=== PATIENT | male | born 1995 | race Caucasian/White ===

== ENCOUNTER 2017-05-29 12:30 | Emergency (ER) | payer MEDICAID ==
[2017-05-29] MEDS ORDERED: Ondansetron 4 MG/2 ML SDV IVPUSH ONE (14:14)
[2017-05-29] MEDS ORDERED: HYDROmorphone 1 MG/ML Syringe IVPUSH ONE (14:14)
[2017-05-29] MEDS ORDERED: Sodium Chloride 0.9% 1,000 ML IV SCH ×2 (14:15→15:30)
--- NOTE | 2017-05-29 14:16 | EDM.PDOC ---
ED HPI GENERAL MEDICAL PROBLEM - General Chief Complaint: Flank Pain Stated Complaint: FLANK PAIN,NAUSEA Time Seen by Provider: 05/29/17 14:16 Source of Information: Reports: Patient, Family History Limitations: Reports: No Limitations - History of Present Illness INITIAL COMMENTS - FREE TEXT/NARRATIVE: pt arrived with pain in the upper abdoman and rt flank area. He has had his gb removed. Onset: Gradual, Other ( several days of pain. ) Duration: Day(s):, Getting Worse Location: Reports: Abdomen Associated Symptoms: Reports: Nausea/Vomiting abdominal Pain Score (Numeric/FACES): 7 - Related Data Allergies Allergy/AdvReac Type Severity Reaction Status Date / Time No Known Allergies Allergy Verified 05/29/17 13:11 Home Meds: Home Meds Omeprazole 20 mg PO DAILY 05/29/17 [History] Past Medical History Gastrointestinal History: Reports: GERD - Past Surgical History GI Surgical History: Reports: Cholecystectomy Social & Family History - Tobacco Use Smoking Status *Q: Current Every Day Smoker Years of Tobacco use: 5 Packs/Tins Daily: 0.5 - Recreational Drug Use Recreational Drug Use: Yes Drug Use in Last 12 Months: Yes Recreational Drug Type: Reports: Marijuana/Hashish Recreational Drug Use Frequency: Weekly ED ROS GENERAL - Review of Systems Review Of Systems: See Below Constitutional: Reports: No Symptoms HEENT: Reports: No Symptoms Respiratory: Reports: No Symptoms Cardiovascular: Reports: No Symptoms Endocrine: Reports: No Symptoms GI/Abdominal: Reports: Abdominal Pain, Other (upper abdoman and rt flank area. He has beenbring up alot of acid in his troat. ) : Reports: No Symptoms ED EXAM, GI/ABD - Physical Exam Exam: See Below Text/Narrative:: Pt arrived with pain in the upper abdoman and rt flank area. He has vomited today. He does decribe alot of acid coming up in his throat. He has had his Gb removed. He does have a history of ulcer disease. He has had some loose stools but not true diarrhea. He has not noted black and tarry stools. Exam Limited By: No Limitations General Appearance: Alert, Anxious, Mild Distress Ears: Normal TMs Nose: Normal Inspection Throat/Mouth: Normal Inspection Head: Atraumatic Neck: Normal Inspection Respiratory/Chest: No Respiratory Distress Cardiovascular: Regular Rate, Rhythm GI/Abdominal Exam: Tender, Other ( tenderness without guarding in the epigastric and rt upper quadrant. ) (Male) Exam: Deferred Rectal (Males) Exam: Deferred Back Exam: Normal Inspection Extremities: Normal Inspection Neurological: Alert, Oriented, Normal Cognition Psychiatric: Anxious Course - Vital Signs Last Recorded V/S: Last Vital Signs Temp 37.0 C 05/29/17 13:13 Pulse 65 05/29/17 15:45 Resp 18 05/29/17 15:45 BP 138/75 05/29/17 15:45 Pulse Ox 98 05/29/17 15:45 - Orders/Labs/Meds Orders: Active Orders 24 hr Category Date Time Status Abdomen Pelvis wo Cont [CT] Stat Exams 05/29/17 14:37 Taken Sodium Chloride 0.9% [Normal Saline] 1,000 ml Med 05/29/17 14:15 Active IV ASDIRECTED Sodium Chloride 0.9% [Normal Saline] 1,000 ml Med 05/29/17 15:30 Active IV ASDIRECTED Medication Orders Sodium Chloride (Normal Saline) 1,000 mls @ 999 mls/hr IV ASDIRECTED BENITO Last Admin: 05/29/17 14:25 Dose: 999 mls/hr Sodium Chloride (Normal Saline) 1,000 mls @ 999 mls/hr IV ASDIRECTED BENITO Last Admin: 05/29/17 15:47 Dose: 999 mls/hr Labs: Laboratory Tests 05/29/17 05/29/17 05/29/17 Range/Units 13:29 13:29 13:30 WBC 10.0 (4.5-11.0) K/uL RBC 5.69 (4.30-5.90) M/uL Hgb 17.6 H (12.0-15.0) g/dL Hct 49.8 (40.0-54.0) % MCV 88 (80-98) fL MCH 31 (27-31) pg MCHC 35 (32-36) % Plt Count 294 (150-400) K/uL Neut % (Auto) 54 (36-66) % Lymph % (Auto) 34 (24-44) % [place] % (Auto) 10 H (2-6) % Eos % (Auto) 1 L (2-4) % Baso % (Auto) 1 (0-1) % Sodium 140 (140-148) mmol/L Potassium 3.7 (3.6-5.2) mmol/L Chloride 103 (100-108) mmol/L Carbon Dioxide 28 (21-32) mmol/L Anion Gap 9.5 (5.0-14.0) mmol/L BUN 11 (7-18) mg/dL Creatinine 1.0 (0.8-1.3) mg/dL Est Cr Clr Drug Dosing 119.64 mL/min Estimated GFR (MDRD) > 60 (>60) Glucose 98 (74-106) mg/dL Calcium 9.6 (8.5-10.1) mg/dL Total Bilirubin 1.6 H (0.2-1.0) mg/dL AST 26 (15-37) U/L ALT 38 (12-78) U/L Alkaline Phosphatase 58 (46-116) U/L C-Reactive Protein (0.0-0.3) mg/dL Total Protein 8.8 H (6.4-8.2) g/dL Albumin 4.5 (3.4-5.0) g/dL Globulin 4.3 H (2.3-3.5) g/dL Albumin/Globulin Ratio 1.1 L (1.2-2.2) Amylase 65 (25-115) U/L Lipase 128 (73-393) U/L Urine Color Urine Appearance Urine pH (4.5-8.0) Ur Specific [place] (1.008-1.030) Urine Protein (NEGATIVE) mg/dL Urine Glucose (UA) (NEGATIVE) mg/dL Urine Ketones (NEGATIVE) mg/dL Urine Occult Blood (NEGATIVE) Urine Nitrite (NEGAITVE) Urine Bilirubin (NEGATIVE) Urine Urobilinogen (NORMAL) mg/dL Ur Leukocyte Esterase (NEGATIVE) Urine RBC (0-5) Urine WBC (0-5) Ur Epithelial Cells Amorphous Sediment Urine Bacteria Urine Mucus 05/29/17 05/29/17 Range/Units 13:30 14:10 WBC (4.5-11.0) K/uL RBC (4.30-5.90) M/uL Hgb (12.0-15.0) g/dL Hct (40.0-54.0) % MCV (80-98) fL MCH (27-31) pg MCHC (32-36) % Plt Count (150-400) K/uL Neut % (Auto) (36-66) % Lymph % (Auto) (24-44) % [place] % (Auto) (2-6) % Eos % (Auto) (2-4) % Baso % (Auto) (0-1) % Sodium (140-148) mmol/L Potassium (3.6-5.2) mmol/L Chloride (100-108) mmol/L Carbon Dioxide (21-32) mmol/L Anion Gap (5.0-14.0) mmol/L BUN (7-18) mg/dL Creatinine (0.8-1.3) mg/dL Est Cr Clr Drug Dosing mL/min Estimated GFR (MDRD) (>60) Glucose (74-106) mg/dL Calcium (8.5-10.1) mg/dL Total Bilirubin (0.2-1.0) mg/dL AST (15-37) U/L ALT (12-78) U/L Alkaline Phosphatase (46-116) U/L C-Reactive Protein 0.31 H (0.0-0.3) mg/dL Total Protein (6.4-8.2) g/dL Albumin (3.4-5.0) g/dL Globulin (2.3-3.5) g/dL Albumin/Globulin Ratio (1.2-2.2) Amylase (25-115) U/L Lipase (73-393) U/L Urine Color Yellow Urine Appearance Slightly cloudy Urine pH 8.0 (4.5-8.0) Ur Specific [place] 1.015 (1.008-1.030) Urine Protein Negative (NEGATIVE) mg/dL Urine Glucose (UA) Normal (NEGATIVE) mg/dL Urine Ketones 15 H (NEGATIVE) mg/dL Urine Occult Blood Negative (NEGATIVE) Urine Nitrite Negative (NEGAITVE) Urine Bilirubin Small (NEGATIVE) Urine Urobilinogen 4 (NORMAL) mg/dL Ur Leukocyte Esterase Small (NEGATIVE) Urine RBC 10-20 H (0-5) Urine WBC 0-5 (0-5) Ur Epithelial Cells Not seen Amorphous Sediment Not seen Urine Bacteria Not seen Urine Mucus Not seen Meds: Medications Generic Name Dose Route Start Last Admin Trade Name Freq PRN Reason Stop Dose Admin Sodium Chloride 1,000 mls @ 999 mls/hr 05/29/17 14:15 05/29/17 14:25 Normal Saline IV 999 mls/hr ASDIRECTED BENITO Administration Sodium Chloride 1,000 mls @ 999 mls/hr 05/29/17 15:30 05/29/17 15:47 Normal Saline IV 999 mls/hr ASDIRECTED BENITO Administration Discontinued Medications Generic Name Dose Route Start Last Admin Trade Name Madeline PRN Reason Stop Dose Admin Al Hydroxide/Mg Hydroxide 15 0 ml 05/29/17 15:28 05/29/17 15:48 ml/ Lidocaine HCl 15 ml PO 05/29/17 15:29 30 ml ONETIME ONE Administration Hydromorphone HCl 0.5 mg 05/29/17 14:14 05/29/17 14:42 Dilaudid IVPUSH 05/29/17 14:15 0.5 mg ONETIME ONE Administration Hydromorphone HCl 0.5 mg 05/29/17 15:13 05/29/17 15:22 Dilaudid IVPUSH 05/29/17 15:14 0.5 mg ONETIME ONE Administration Ondansetron HCl 4 mg 05/29/17 14:14 05/29/17 14:41 Zofran IVPUSH 05/29/17 14:15 4 mg ONETIME ONE Administration Pantoprazole Sodium 40 mg 05/29/17 15:31 05/29/17 15:47 Protonix Iv IVPUSH 05/29/17 15:32 40 mg ONETIME ONE Administration - Re-Assessments/Exams Free Text/Narrative Re-Assessment/Exam: 05/29/17 16:36 pt arrived with pain in the upper abdoman. His lipse and amylase are normal. His liver enzymes are not up. His wbc is normal. Departure - Departure Time of Disposition: 16:38 Disposition: Home, Self-Care 01 Condition: Fair Clinical Impression: Abdominal pain - Discharge Information Forms: ED Department Discharge Care Plan Goals: rtc to be gastroscoped, increase prilosec to bid, --20mg, keep appt with Dr Small in Friday. - My Orders Last 24 Hours: My Active Orders 05/29/17 14:15 Sodium Chloride 0.9% [Normal Saline] 1,000 ml IV ASDIRECTED 05/29/17 14:37 Abdomen Pelvis wo Cont [CT] Stat 05/29/17 15:30 Sodium Chloride 0.9% [Normal Saline] 1,000 ml IV ASDIRECTED - Assessment/Plan Last 24 Hours: My Active Orders 05/29/17 14:15 Sodium Chloride 0.9% [Normal Saline] 1,000 ml IV ASDIRECTED 05/29/17 14:37 Abdomen Pelvis wo Cont [CT] Stat 05/29/17 15:30 Sodium Chloride 0.9% [Normal Saline] 1,000 ml IV ASDIRECTED
[2017-05-29] MEDS ORDERED: HYDROmorphone 0.5 MG/0.5 ML Syringe IVPUSH ONE (15:13)
[2017-05-29] MEDS ORDERED: Alum Hydrox/Mag Hydrox/Simeth 15 ML, Lidocaine 2% 15 ML PO ONE ×2 (15:28)
[2017-05-29] MEDS ORDERED: Pantoprazole 40 MG Vial IVPUSH ONE (15:31)
[2017-05-29 15:46] VITALS: BP 138/75
== END 2017-05-29 17:39 | disposition home or self-care (01) ==
LOC: JP.ED 12:30
DX: R10.10 Upper abdominal pain, unspecified (principal); R11.2 Nausea with vomiting, unspecified; F17.210 Nicotine dependence, cigarettes, uncomplicated; Z90.49 Acquired absence of other specified parts of digestive tract
CPT/HCPCS: 36415; 74176; 80053; 81001; 82150; 83690; 85025; 86140; 96361; 96374; 96375; 96376; 99284; A9270; C9113; J1170; J2405; J7040

== ENCOUNTER 2017-05-30 08:25 | Day surgery (SDC) | payer MEDICAID ==
[~2017-05-30 08:25] MED LIST: Midazolam 1 MG/ML 2 ML SDV ONE; Propofol 200 MG/20 ML SDV ONE; fentaNYL 100 MCG/2 ML SDV ONE
[2017-05-30] MEDS ORDERED: Dextrose 5%-Lactated Ringers 1,000 ML IV SCH (09:30)
[2017-05-30] MEDS ORDERED: Glycopyrrolate 0.2 MG/ML 2 ML SYRINGE IVPUSH ONE (09:45)
[2017-05-30] MEDS ORDERED: Pantoprazole 40 MG Vial IVPUSH ONE (11:07)
[2017-05-30 12:18] VITALS: BP 104/67
--- NOTE | 2017-06-02 16:16 | OR ---
DATE OF PROCEDURE: 05/30/2017 PREOPERATIVE DIAGNOSIS: Epigastric pain and heartburn associated with frequent nausea and vomiting. POSTOPERATIVE DIAGNOSES: 1. 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 2. Mild duodenitis. OPERATIVE PROCEDURE: Esophagogastroduodenoscopy with: 1. Biopsies of antrum for CLOtest. 2. Biopsies of esophagogastric junction for histologic evaluation. ANESTHESIA: IV sedation. INDICATION FOR PROCEDURE: A 21-year-old presenting with severe symptoms primarily gastroesophageal reflux. Presently, he is on omeprazole 20 mg a day and this is improving slightly, but he still has quite severe symptoms. The plan is to proceed with upper GI endoscopy with biopsies and/or dilation as indicated. Potential risks including bleeding and perforation were discussed, and the patient wishes to proceed. DETAILS OF PROCEDURE: The patient was taken to the operating room and placed in a left lateral decubitus position. IV sedation was administered, after which the upper GI endoscope was passed orally through the length of the esophagus and into the stomach with retroflexion view of the fundus, and thereafter through the pyloric channel and the duodenum to the junction of the 3rd and 4th duodenal segments. Findings included some mild excoriation of the hypopharynx and larynx. Upper esophageal sphincter and esophageal body were unremarkable. As one approached the EG junction, the patient was noted to have a strikingly severe gastroesophageal reflux disease present. This included multiple upper extension of the gastroesophageal junction mucosal line as well as some additional islands of the columnar- type mucosa and two focal areas of [place] ulcerations as well. There was no stricture or gross evidence of neoplasia. Hiatal hernia itself was not overly large perhaps a centimeter or so. Within the stomach retroflexion confirmed the hiatal hernia. The remainder of the stomach showed some very mild redness in the antrum. The duodenal bulb attached patchy duodenitis but without erosions and the duodenum findings normalized beyond the duodenal bulb. At this point, biopsies obtained from the antrum and sent for CLOtest for H. pylori. Multiple biopsies were then obtained from esophagogastric junction, sent for histologic evaluation. Minimal bleeding from the biopsy sites was seen and the procedure was then concluded. The patient was taken to the recovery room in satisfactory condition. The patient will be given 40 mg of Protonix IV in the recovery room and then started on Protonix 40 mg a day, this will be called in. We will see the patient back next Friday to discuss long-term treatment options, at his age he would probably be best served by means of an anti-reflux procedure. This will be discussed with him this coming Friday. Tylor Pearson MD /[id number]
== END 2017-05-30 12:14 | disposition home or self-care (01) ==
LOC: JP.SDS 08:25
PROVIDERS: ATTEND Surgery
DX: K29.80 Duodenitis without bleeding (principal); K44.9 Diaphragmatic hernia without obstruction or gangrene; K21.9 Gastro-esophageal reflux disease without esophagitis; Z91.013 Allergy to seafood
CPT/HCPCS: 43239; 87081; C9113; J2250; J2704; J3010; J7042; 88305

== ENCOUNTER 2017-06-07 14:36 | Emergency (ER) | payer MEDICAID ==
[2017-06-07] MEDS ORDERED: Ondansetron 4 MG/2 ML SDV IVPUSH ONE (15:07)
[2017-06-07] MEDS ORDERED: Sodium Chloride 0.9% 1,000 ML IV SCH (15:15)
[2017-06-07] MEDS ORDERED: Pantoprazole 40 MG Vial IVPUSH ONE (16:11)
[2017-06-07 16:13] VITALS: BP 139/94
--- NOTE | 2017-06-07 16:21 | EDM.PDOC ---
[id number] VOMITING SURGERY SCHEDULE 06/10/17 Time Seen by Provider: 06/07/17 15:00 Source of Information: Reports: Patient, Family History Limitations: Reports: No Limitations - History of Present Illness INITIAL COMMENTS - FREE TEXT/NARRATIVE: 21-year-old male with abdominal pain and persistent nausea and vomiting over the past several days. He is scheduled for a hiatal hernia repair next Friday , but his mom is concerned that he is getting dehydrated and his pain is not controlled because of his persistent vomiting and inability to eat or drink anything. She says he has kept down "one meal in the last 10 days". No fevers or chills. He did have an EGD 2 weeks ago that confirmed fairly severe esophagitis but is unable to take his anti-nausea and antacid medication because he can't keep anything down. He had a preoperative physical 3 days ago, had hematuria which the mom is very worried about as well. Severity: Moderate Associated Symptoms: Reports: Malaise, Nausea/Vomiting. Denies: Fever/Chills, Shortness of Breath Epigastric Pain Score (Numeric/FACES): 8 - Related Data Allergies Allergy/AdvReac Type Severity Reaction Status Date / Time salmon Allergy Rash Uncoded 06/07/17 14:48 Home Meds: Home Meds Omeprazole 20 mg PO DAILY 05/29/17 [History] Hydrocodone/Acetaminophen [[place] 5-325] 1 tab PO Q4H PRN 05/30/17 [History] Pantoprazole [ProTONIX] 40 mg PO DAILY 06/07/17 [History] Sucralfate [Sucralfate] 1 tab PO QID 06/07/17 [History] Past Medical History HEENT History: Reports: Impaired Vision Cardiovascular History: Reports: High Cholesterol Respiratory History: Reports: Asthma Gastrointestinal History: Reports: GERD Genitourinary History: Reports: None Neurological History: Reports: Concussion Psychiatric History: Reports: ADHD, Anxiety, Bipolar, Depression - Infectious Disease History Infectious Disease History: Reports: Chicken Pox, Influenza 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 - Past Surgical History Respiratory Surgical History: Reports: None GI Surgical History: Reports: Cholecystectomy Male Surgical History: Reports: Other (See Below) Other Male Surgeries/Procedures: history of testicular hernia age 5-6 Social & Family History - Tobacco Use Smoking Status *Q: Current Every Day Smoker Years of Tobacco use: 10 Packs/Tins Daily: 0.2 - Caffeine Use Caffeine Use: Reports: Soda - Recreational Drug Use Recreational Drug Use: Yes Drug Use in Last 12 Months: Yes Recreational Drug Type: Reports: Marijuana/Hashish Recreational Drug Use Frequency: Weekly Recreational Drug Last Use: t-5 ED ROS GENERAL - Review of Systems Review Of Systems: See Below Constitutional: Reports: Malaise. Denies: Fever, Chills HEENT: Reports: No Symptoms Respiratory: Denies: Shortness of Breath GI/Abdominal: Reports: Abdominal Pain, Nausea, Vomiting Skin: Reports: No Symptoms Neurological: Denies: Headache ED EXAM, GENERAL - Physical Exam Exam: See Below Exam Limited By: No Limitations General Appearance: Alert, No Apparent Distress Eye Exam: Bilateral Eye: Normal Inspection (Normal hydration) Throat/Mouth: Normal Inspection Respiratory/Chest: No Respiratory Distress Cardiovascular: Regular Rate, Rhythm GI/Abdominal: Normal Bowel Sounds, Soft, Tender (React with tenderness to even light palpation over the upper abdomen) Neurological: Alert, Oriented Skin Exam: Warm, Dry Course - Vital Signs Last Recorded V/S: Last Vital Signs Temp 99.2 F 06/07/17 14:52 Pulse 76 06/07/17 16:13 Resp 20 06/07/17 16:13 BP 139/94 H 06/07/17 16:13 Pulse Ox 97 06/07/17 16:13 - Orders/Labs/Meds Labs: Laboratory Tests 06/07/17 06/07/17 06/07/17 Range/Units 15:17 15:17 15:26 WBC 8.3 (4.5-11.0) K/uL RBC 5.56 (4.30-5.90) M/uL Hgb 17.1 H (12.0-15.0) g/dL Hct 48.4 (40.0-54.0) % MCV 87 (80-98) fL MCH 31 (27-31) pg MCHC 35 (32-36) % Plt Count 251 (150-400) K/uL Neut % (Auto) 69 H (36-66) % Lymph % (Auto) 23 L (24-44) % [place] % (Auto) 8 H (2-6) % Eos % (Auto) 1 L (2-4) % Baso % (Auto) 1 (0-1) % Sodium 138 L (140-148) mmol/L Potassium 4.2 (3.6-5.2) mmol/L Chloride 101 (100-108) mmol/L Carbon Dioxide 26 (21-32) mmol/L Anion Gap 15.2 H (5.0-14.0) mmol/L BUN 10 (7-18) mg/dL Creatinine 1.0 (0.8-1.3) mg/dL Est Cr Clr Drug Dosing 123.41 mL/min Estimated GFR (MDRD) > 60 (>60) Glucose 95 (74-106) mg/dL Calcium 9.4 (8.5-10.1) mg/dL Total Bilirubin 1.1 H (0.2-1.0) mg/dL AST 31 (15-37) U/L ALT 63 (12-78) U/L Alkaline Phosphatase 63 (46-116) U/L Total Protein 8.5 H (6.4-8.2) g/dL Albumin 4.3 (3.4-5.0) g/dL Globulin 4.2 H (2.3-3.5) g/dL Albumin/Globulin Ratio 1.0 L (1.2-2.2) Amylase 73 (25-115) U/L Lipase 122 (73-393) U/L Urine Color Yellow Urine Appearance Slightly cloudy Urine pH 9.0 H (4.5-8.0) Ur Specific [place] 1.020 (1.008-1.030) Urine Protein Negative (NEGATIVE) mg/dL Urine Glucose (UA) Normal (NEGATIVE) mg/dL Urine Ketones Negative (NEGATIVE) mg/dL Urine Occult Blood Negative (NEGATIVE) Urine Nitrite Negative (NEGAITVE) Urine Bilirubin Negative (NEGATIVE) Urine Urobilinogen Normal (NORMAL) mg/dL Ur Leukocyte Esterase Small (NEGATIVE) Urine RBC Not seen (0-5) Urine WBC 0-5 (0-5) Ur Epithelial Cells Few Amorphous Sediment Few Urine Bacteria Occasional Urine Mucus Rare Meds: Medications Discontinued Medications Generic Name Dose Route Start Last Admin Trade Name Freq PRN Reason Stop Dose Admin Sodium Chloride 1,000 mls @ 1,000 mls/hr 06/07/17 15:15 06/07/17 15:15 Normal Saline IV 1,000 mls/hr ASDIRECTED BENITO Administration Ondansetron HCl 4 mg 06/07/17 15:07 06/07/17 15:15 Zofran IVPUSH 06/07/17 15:08 4 mg ONETIME ONE Administration Pantoprazole Sodium 40 mg 06/07/17 16:11 06/07/17 16:17 Protonix Iv IVPUSH 06/07/17 16:12 40 mg ONETIME ONE Administration - Re-Assessments/Exams Free Text/Narrative Re-Assessment/Exam: 06/07/17 16:18 UA was rechecked and is now normal. White count is normal, electrolytes are normal. Patient was given 1 L of normal saline as well as 4 mg of IV Zofran. He had no vomiting while in the emergency room. Protonix 40 mg IV was then given. Mom was insisting that he be hospitalized but after discussing his case with surgery they recommended oral viscous lidocaine, sublingual Zofran and when necessary Reglan and recheck in the clinic on Friday. The patient appeared fine , stable, and did not appear to need hospitalization. Departure - Departure Time of Disposition: 16:26 Disposition: Home, Self-Care 01 Condition: Good Clinical Impression: Esophagitis, erosive Nausea and vomiting Qualifiers: Vomiting type: unspecified Vomiting Intractability: non-intractable Qualified Code(s): R11.2 - Nausea with vomiting, unspecified - Discharge Information Instructions: Esophagitis Referrals: Tylor Pearson MD [Primary Care Provider] - Forms: ED Department Discharge Care Plan Goals: Use Zofran every 4 hours to control nausea, viscous lidocaine for pain and add Reglan up to 3 times daily for extra nausea control. Liquids only for the next day and a half then advance diet as tolerated. Recheck in the clinic on Friday if not improving satisfactorily.
== END 2017-06-07 16:37 | disposition home or self-care (01) ==
LOC: JP.ED 14:36
DX: K22.10 Ulcer of esophagus without bleeding (principal); E78.00 Pure hypercholesterolemia, unspecified; J45.909 Unspecified asthma, uncomplicated; K21.9 Gastro-esophageal reflux disease without esophagitis; F31.9 Bipolar disorder, unspecified; F17.210 Nicotine dependence, cigarettes, uncomplicated; Z98.890 Other specified postprocedural states; Z79.899 Other long term (current) drug therapy; Z91.013 Allergy to seafood
CPT/HCPCS: 36415; 80053; 81001; 82150; 83690; 85025; 96361; 96374; 96375; 99284; C9113; J2405; J7040; 99283

== ENCOUNTER 2017-06-10 10:34 | Inpatient (IN) | payer MEDICAID ==
[2017-06-10] MEDS ORDERED: Naloxone 0.4 MG/ML SDV IVPUSH PRN ×2 (10:56→10:59)
[2017-06-10] MEDS ORDERED: Dextrose 5%-Lactated Ringers 1,000 ML IV SCH (11:00)
[2017-06-10] MEDS ORDERED: Naloxone 0.4 MG/ML SDV IV PRN (11:00)
[2017-06-10] MEDS: HYDROmorphone/Normal Saline 15 MG/30 ML PCA IV PRN (11:04)
[2017-06-10] MEDS ORDERED: ceFAZolin 2 GM in Sodium Chloride 0.9% 50 ML IV ONE (12:00)
[2017-06-10] MEDS ORDERED: Dexamethasone 4 MG/ML SDV ONE (13:30)
[2017-06-10] MEDS ORDERED: Neostigmine Methylsulfate 1 MG/ML 5 ML Syringe ONE (13:30)
[2017-06-10] MEDS ORDERED: Ondansetron 4 MG/2 ML SDV ONE (13:30)
[2017-06-10] MEDS ORDERED: Propofol 200 MG/20 ML SDV ONE (13:30)
[2017-06-10] MEDS ORDERED: Glycopyrrolate 0.2 MG/ML 5 ML MDV ONE (13:30)
[2017-06-10] MEDS ORDERED: Rocuronium 50 MG/5 ML Vial ONE (13:30)
[2017-06-10] MEDS ORDERED: Succinylcholine 200 MG/10 ML MDV ONE (13:30)
[2017-06-10] MEDS ORDERED: Lactated Ringers 1,000 ML ONE (14:35)
[2017-06-10] MEDS ORDERED: hydrOXYzine HCl 100 MG/2 ML SDV IM ONE (15:20)
[2017-06-10] MEDS ORDERED: Ondansetron 4 MG/2 ML SDV IVPUSH PRN (16:44)
[2017-06-10] MEDS: Metoclopramide 10 MG/2 ML SDV IVPUSH SCH ×2 (17:29→23:10)
[2017-06-10] MEDS: Pantoprazole 40 MG Vial IV SCH (17:29)
[2017-06-10] MEDS: Dextrose 5%-Lactated Ringers 1,000 ML IV SCH (18:32)
[2017-06-11] MEDS: Dextrose 5%-Lactated Ringers 1,000 ML IV SCH ×2 (00:31→06:13)
[2017-06-11] MEDS: Metoclopramide 10 MG/2 ML SDV IVPUSH SCH ×4 (04:53→21:45)
[2017-06-11] MEDS: HYDROmorphone/Normal Saline 15 MG/30 ML PCA IV PRN (07:23)
[2017-06-11] MEDS ORDERED: Dextrose 5%-Lactated Ringers 1,000 ML IV SCH (07:30)
[2017-06-11] MEDS ORDERED: Ondansetron 4 MG Tab.DIS PO PRN (07:33)
[2017-06-11] MEDS: Pantoprazole 40 MG Vial IV SCH (08:01)
[2017-06-11] MEDS: Acetaminophen/HYDROcodone 108-2.5 MG/5 ML Soln 15 ML UD Cup PO PRN ×4 (08:10→21:44)
--- NOTE | 2017-06-11 08:43 | PN ---
DATE OF SERVICE: 06/11/2017 SUBJECTIVE: Santiago is postop day one. His pain has been controlled. He is tolerating clear liquids. Hernandez was discontinued and he voided 650 mL. REVIEW OF SYSTEMS: Remainder of review of systems negative for any pertinent positives and negatives. OBJECTIVE: GENERAL: Santiago Oliver is a 21-year-old male. He is alert and orientated. VITAL SIGNS: TPR is 99.1, 78, 18, blood pressure 107/46. HEENT: Negative. NECK: Supple. HEART: Regular rate and rhythm. LUNGS: Clear. ABDOMEN: Dressings dry and intact. Abdominal binder is on. EXTREMITIES: Without peripheral edema. ASSESSMENT: Laparoscopic Salima fundoplication with repair of paraesophageal diaphragmatic hernia with mesh and excision of mediastinal lipoma for gastroesophageal reflux disease refractory to medical management, and associated periesophageal diaphragmatic hernia, and mediastinal lipoma. Date of surgery 06/10/2017. PLAN: 1. Full-liquid diet. 2. Dietary consults for lap Salima. 3. Discontinue REGISTERED CLINICAL DIETITIAN and continue his pulse ox. 4. Hycet 15 males q.4 hours p.r.n. pain. 5. Decrease IV to 100 mL per hour. 6. Good pulmonary toilet encouraged. 7. We will evaluate p.r.n. or in a.m. Shelley Whitt PA-C /[id number]
[2017-06-11] MEDS: hydrOXYzine HCl 25 MG Tab PO PRN ×3 (10:10→21:44)
[2017-06-11] MEDS: Nicotine 14 MG/24 Hr Patch TRDERM SCH (10:18)
[2017-06-11] MEDS: Ibuprofen 600 MG Tab PO PRN (19:44)
[2017-06-12] MEDS: Acetaminophen/HYDROcodone 108-2.5 MG/5 ML Soln 15 ML UD Cup PO PRN ×4 (01:56→18:17)
[2017-06-12] MEDS: hydrOXYzine HCl 25 MG Tab PO PRN (01:57)
[2017-06-12] MEDS: Metoclopramide 10 MG/2 ML SDV IVPUSH SCH (04:45)
[2017-06-12] MEDS: Ibuprofen 600 MG Tab PO PRN ×3 (04:55→18:18)
[2017-06-12] MEDS ORDERED: Metoclopramide 10 MG Tab PO PRN (07:17)
[2017-06-12] MEDS: Pantoprazole 40 MG Tab.CR PO SCH (08:00)
[2017-06-12] MEDS: Nicotine 14 MG/24 Hr Patch TRDERM SCH (08:05)
--- NOTE | 2017-06-12 08:10 | PN ---
DATE OF SERVICE: 06/12/2017 SUBJECTIVE: Santiago reports that his pain is controlled. He is taking Hycet elixir alternating with Motrin. His oral intake was 1160. He denies any dysphagia. Nausea has improved. REVIEW OF SYSTEMS: Remainder of review of systems negative for any pertinent positives and negatives. OBJECTIVE: GENERAL: Santiago is a 21-year-old male, alert and orientated, lying in bed. VITAL SIGNS: TPR 97.5, 88, 16, and blood pressure 103/77. HEENT: Negative. NECK: Supple. HEART: Regular rate and rhythm. LUNGS: Clear. ABDOMEN: Incisions look good. Abdominal binder is on. EXTREMITIES: Without peripheral edema. ASSESSMENT: Laparoscopic Salima fundoplication with repair of paraesophageal diaphragmatic hernia with mesh and excision of mediastinal lipoma for gastroesophageal reflux disease refractory to medical management and associated paraesophageal diaphragmatic hernia and mediastinal lipoma, postoperative day #2, date of surgery 06/12/2017. PLAN: 1. Dressing off, may shower. Discontinue IV Protonix and IV Reglan, change to oral; Protonix 40 mg p.o. daily and Reglan 10 mg q.6 hours p.r.n. nausea. 2. Good pulmonary toilet encouraged. 3. We will evaluate p.r.n. or in a.m. Shelley Whitt PA-C /[id number]
[2017-06-13] MEDS: Pantoprazole 40 MG Tab.CR PO SCH (07:08)
[2017-06-13] MEDS: Acetaminophen/HYDROcodone 108-2.5 MG/5 ML Soln 15 ML UD Cup PO PRN ×2 (07:11→12:53)
--- NOTE | 2017-06-13 07:45 | OR ---
DATE OF PROCEDURE: 06/10/2017 PREOPERATIVE DIAGNOSIS: Gastroesophageal reflux disease refractory to medical management. POSTOPERATIVE DIAGNOSES: 1. Gastroesophageal reflux disease refractory to medical management associated with large paraesophageal diaphragmatic hernia. 2. Mediastinal lipoma. OPERATIVE PROCEDURE: 1. Laparoscopic Salima fundoplication with repair of paraesophageal diaphragmatic hernia with mesh (52181). 2. Excision of mediastinal lipoma (17920). ANESTHESIA: General. INDICATION FOR PROCEDURE: This is a 21-year-old male presenting with increasing problems with gastroesophageal reflux disease. He wakes up with quite a bit of emesis as well as some bilious material, appearing into the throat. He does not have any dysphagia per se. Recent endoscopy showed an extremely aggressive gastroesophageal reflux disease being present with there being multiple ulcers and marked inflammation of the distal esophagus also with a fairly large hiatal hernia. The patient again does not have any dysphagia and it does not appear we are likely dealing with any motility disorder. The diagnosis of the reflux disease at this point is certainly not in question. Given this and the refractoriness of the situation to medical management, the patient and grandmother who were present for the discussion wished to proceed with a Salima fundoplication. Potential risks of the procedure including bleeding, infection, injury to underlying viscera, problems with fundoplication such as dysphagia, gas-bloat syndrome, disorders of gastric emptying rate, as well as possible incomplete relief reflux symptoms were reviewed, and the patient wishes to proceed. DETAILS OF PROCEDURE: The patient was taken to the operating room. After general endotracheal anesthesia was induced, he was placed in a lithotomy position. Hernandez catheter was inserted and the abdomen prepped and draped. At 15 cm inferior, 5 cm left of xiphoid process a transverse incision was made. The peritoneal cavity entered under direct visualization using Optiview trocar, was inflated to 15 mmHg pressure with CO2. Laparoscope was reinserted. No underlying trocar insertion site injuries were seen. Following this, four additional trocars were placed across the upper and mid abdomen and general exploration undertaken. As one elevated the liver, the patient noted have moderate-sized paraesophageal hernia. This hernia had a major paraesophageal component with prolapse of some perigastric fat, some of the gastric fundus as well as a tongue of omentum in a plane anterior to parts of the esophagus This was then reduced and the peritoneum overlying it, incised and reflected downward. The peritoneum on each side of the EG junction was then dissected as well. This allowed eventual separation of esophagus from the crural fibers and retroesophageal window established by blunt dissection and that area encircled with a [place] drain. The additional soft tissue attachments to the distal esophagus were then divided with Harmonic scalpel until intraabdominal esophageal length of around 4 cm was established. The posterior crural repair was then accomplished with a series of 0 Ethibond sutures reinforced with PTFE pledgets. Given the relatively large defect, a Phasix mesh was cut such that it lay across the crural repair and then up along the side of the esophagus and was fixed in position with some titanium tacking screws. At this point, beginning in the upper greater curvature, the omentum was divided away from that edge of the stomach with Harmonic scalpel this then continued up through the short gastrics including the posterior and highest short gastric vessels and some areolar tissue around the left side of the esophagogastric junction also divided providing less tension for the subsequent placement of fundoplication. With the fundus now being well mobilized, it was retrieved through the retroesophageal window. This was moved back and forth until the least tense portion of the fundus was selected for the subsequent fundoplication. A guidewire was then placed orally per anesthesia and over this, a 54-[place] Savary dilator was put in position. A three stitch 2 cm fundoplication was then accomplished with 0 Ethibond sutures reinforced with PTFE pledgets. Each of the incisions included bites of the underlying esophagus. Sutures were then placed from the upper aspect of the fundoplication to the overlying diaphragm with the same 0 Ethibond reinforcement with pledgets. One of these was placed on each side and at that point, the fundoplication appeared to be satisfactorily completed. Dilator and guidewire were removed, and the fundoplication inspected and found to be satisfactorily floppy. During the course of dissection behind the esophagus, a mediastinal lipoma was encountered. This was excised and sent for histologic evaluation as part of the procedure. With no further problems noted trocars were removed and the peritoneal cavity deflated. The fascia at the 12 mm site was closed with 0 Vicryl stitch and the skin with a 4-0 Vicryl skin stitch. Dressing applied. The patient was taken to the recovery room in satisfactory condition. Tylor Pearson MD /[id number]
--- NOTE | 2017-06-13 07:51 | DISCH ---
ADMISSION DIAGNOSES: Erosive esophagitis and gastroesophageal reflux disease refractory to medical management. DISCHARGE DIAGNOSES: Laparoscopic Salima fundoplication with repair of paraesophageal diaphragmatic hernia with mesh and excision of mediastinal lipoma for gastroesophageal reflux disease, refractory to medical management and associated periesophageal diaphragmatic hernia, and mediastinal lipoma. DATE OF SURGERY: 06/10/2017. HISTORY: Santiago Oliver is a 21-year-old male who persisted to have GERD refractory to medical management. After preoperative evaluation and discussion of possible risks and possible complications, he wished to proceed with surgical procedure. HOSPITAL COURSE: Santiago had his surgery on 06/10/2017, he had no operative complications. On postop day #2, he was started on a full liquid diet and he tolerated it well. His pain was well managed. On postop day #3, oral intake was adequate. Activity was good. He did discharge planning and was involved with psychosocial issues. On postop day #3, Santiago was able to be discharged to home. Pain was well managed, activity good, oral intake adequate, and vital signs were stable. DISCHARGE PHYSICAL EXAMINATION: GENERAL: Santiago Oliver is a 21-year-old male. VITAL SIGNS: Height 5 feet 11 inches. Weight is 226 pounds. TPR is 98.5, 77, 18, blood pressure 124/89. HEENT: Negative. NECK: Supple. HEART: Regular rate and rhythm. LUNGS: Clear. ABDOMEN: Sutures in place. Abdominal binder is on. EXTREMITIES: Without peripheral edema. DISPOSITION: Discharged to home. CONDITION: Stable and improving. FOLLOWUP: Followup appointment with Tylor Pearson MD on 06/25/2017 at 8:45 a.m. DISCHARGE MEDICATIONS: 1. Acetaminophen and hydrocodone 108/2.5 mg per 5 mL, 15 mL oral q.4 hours p.r.n. pain for 73 mL. 2. Ibuprofen 600 mg q.6 hours p.r.n. nausea #30. 3. Zofran ODT 4 mg q.4 hours p.r.n. nausea. He is to resume his medications of omeprazole 20 mg daily at home or if he is out of that medication he is to take Protonix 40 mg daily. He states he has a full bottle of either the omeprazole or the Protonix. DISCHARGE DIET: Full liquid diet for 2 weeks. Drink 8 to 10 glasses a day of water. DISCHARGE INSTRUCTIONS: Activity, no lifting greater than 10 pounds for 2 weeks. Walk 6 times daily, distance and time as tolerated. Driving, do not drive on pain medication. May shower. Notify provider if any fever, increased pain, nausea, or vomiting. Keep site clean and dry. Wear abdominal binder for 2 weeks and then as tolerated. SPECIAL INSTRUCTIONS: Use incentive spirometer 10 times every hour while awake, may return to work on 06/16/2017.
[2017-06-13] MEDS: Nicotine 14 MG/24 Hr Patch TRDERM SCH (09:58)
[2017-06-13 12:16] VITALS: BP 148/82
== END 2017-06-13 14:15 | disposition home or self-care (01) | DRG 328 ==
LOC: JP.SDS 10:34 → JP.MS 10:34 → EDSTATUS 15:00 → JP.2SS 16:05
PROVIDERS: ADMIT Surgery; ATTEND Surgery
PROC: 0BUS4JZ (ICD-10-PCS; principal; 2017-06-10)
PROC: 0WBC4ZX Excision of Mediastinum, Percutaneous Endoscopic Approach, Diagnostic (ICD-10-PCS; principal; 2017-06-10)
PROC: 0BUR4JZ (ICD-10-PCS; principal; 2017-06-10)
PROC: 0DV44ZZ Restriction of Esophagogastric Junction, Percutaneous Endoscopic Approach (ICD-10-PCS; principal; 2017-06-10)
DX: K21.9 Gastro-esophageal reflux disease without esophagitis (principal); K44.9 Diaphragmatic hernia without obstruction or gangrene; D17.4 Benign lipomatous neoplasm of intrathoracic organs; Z87.891 Personal history of nicotine dependence
CPT/HCPCS: 88304; 94762; A9270-GY; C1781; C9113; J0330; J0690; J1100; J1170; J2405; J2704; J2765; J3010; J3410; J7042; J7050; J7120